=== PATIENT | female | born 1965 | race Two or more races ===

== ENCOUNTER 2019-09-02 20:15 | Inpatient (IN) | payer OTHER ==
[~2019-09-02] VITALS: Ht 157.5 cm; Wt 80.8 kg
[2019-09-02 21:28] LABS: Basophils # (auto) 0.1 uL; Basophils % (auto) 1.2 % (0.0-2.0); Eosinophils # (auto) 1.1 uL; Eosinophils % (auto) 12.5 % (0.0-7.0); Hematocrit 39.7 % (36.0-46.0); Hemoglobin 13.5 g/dL (12.2-16.2); Lymphocytes # (auto) 1.9 uL; Lymphocytes % (auto) 21.3 % (10.0-50.0); Mean Corpuscular Hemoglobin 31.5 pg (28.0-32.0); Mean Corpuscular Volume 92.7 fL (80.0-100.0); Monocytes # (auto) 0.4 uL; Monocytes % (auto) 3.9 % (0.0-12.0); Neutrophils # (auto) 5.5 uL; Neutrophils % (auto) 61.1 % (37.0-80.0); Nucleated Red Blood Cells % 0.1 %; Platelet Count (auto) 391 10^3/uL (140-450); Red Blood Cells 4.29 10^6/uL (4.0-5.20); Red Cell Distribution Width 14.9 % (11.8-14.3)
[2019-09-02 21:30] LABS: Calcium 8.8 mg/dL (8.5-10.1); Chloride 110 mmol/L (98-107); Potassium 4.1 mmol/L (3.5-5.1); Sodium 142 mmol/L (136-145)
[2019-09-02 21:35] LABS: Alanine Aminotransferase 40 U/L (13-56); Albumin 3.9 g/dL (3.4-5.0); Anion Gap 8 (5-15); Aspartate Aminotransferase 19 U/L (15-37); BUN/Creatinine Ratio 13.5; Blood Urea Nitrogen 13 mg/dL (7-18); Carbon Dioxide 24 mmol/L (21-32); GFR African American 77 mL/min; GFR Non-African American 64 mL/min; Glucose 269 mg/dL (74-106)
[2019-09-02 21:53] LABS: Alkaline Phosphatase 117 U/L (45-117); Bilirubin, Total 0.7 mg/dL (0.2-1.0); Total Protein 7.8 g/dL (6.4-8.2)
[2019-09-02] MEDS ORDERED: methylPREDNISolone SOD SUCC 125 MG/2 ML VL IV ONE (23:15)
[2019-09-02] MEDS ORDERED: IPRATROPIUM BROM 0.5 MG/2.5ML INH SOL NEB ONE (23:15)
[2019-09-02] MEDS ORDERED: ALBUTEROL SULF 2.5 MG/0.5ML(0.5%) NEB SOLN NEB ONE (23:15)
[2019-09-02 23:36] LABS: INR < 0.93 (0.9-1.15); Partial Thromboplastin Time 27.3 sec (23.64-32.05)
[2019-09-03] MEDS ORDERED: ALBUTEROL SULF 2.5 MG/0.5ML(0.5%) NEB SOLN NEB ONE (01:45)
[2019-09-03] MEDS ORDERED: IPRATROPIUM BROM 0.5 MG/2.5ML INH SOL NEB ONE (01:45)
[2019-09-03 04:45] VITALS: BP 159/61
[2019-09-03] MEDS ORDERED: TEMAZEPAM 15 MG CAP PO PRN (04:45)
[2019-09-03] MEDS ORDERED: ACETAMINOPHEN 325 MG TAB PO PRN (04:45)
[2019-09-03] MEDS ORDERED: cloNIDine HCL 0.1 MG TAB PO PRN (04:45)
[2019-09-03] MEDS ORDERED: NITROGLYCERIN 0.4 MG SL TAB SL PRN (04:45)
[2019-09-03] MEDS ORDERED: ONDANSETRON HCL 4 MG/2 ML VIAL IV PRN (04:45)
[2019-09-03] MEDS ORDERED: DEXTROSE (50%) 50ML SYRG IV PRN (04:45)
[2019-09-03] MEDS ORDERED: MORPHINE SULF INJ 2 MG/ML SYRINGE 1ML IV PRN (04:45)
[2019-09-03 06:15] VITALS: BP 163/81
--- NOTE | 2019-09-03 06:15 | NUR ---
Telemetry admit from ER ALEKSANDRA MENDEZ admitted to Telemetry unit after SBAR received. Patient oriented to SHERRON GROSS RN primary RN, unit, room, bed, and unit policies regarding patient care and visiting hours. Patient now on continuous telemetry monitoring, tele box # and telemetry reading on arrival to unit is SR. Patient placed on bedside oxygen, weighed by bedscale and encouraged to call if they need something. All questions and concerns addressed, patient verbalized understanding.
[2019-09-03] MEDS: InsuLIN REG 1unit/0.01ml Soln (100units/ml) SC SCH ×2 (06:27→12:00)
[2019-09-03] MEDS: ACCU-CHEK COMFORT CURVE STRIP VI SCH ×2 (06:28→12:00)
--- NOTE | 2019-09-03 06:30 | NUR ---
PATIENT BS- 423. ADMINSITERED 10U REGULAR INSULIN. PAGED HOSPITALIST FOR FURTHER ORDERS. PATIENT IS TYPE 2 DM AND ON SOLUMEDROL.
[2019-09-03] MEDS: ALBUTEROL SULF 2.5 MG/0.5ML(0.5%) NEB SOLN NEB SCH ×2 (06:42→12:10)
[2019-09-03] MEDS: IPRATROPIUM BROM 0.5 MG/2.5ML INH SOL NEB SCH ×2 (06:43→12:10)
[2019-09-03] MEDS ORDERED: ALBUAER3 IN (07:00)
[2019-09-03] MEDS ORDERED: METH2.5T3 PO (07:00)
[2019-09-03] MEDS ORDERED: FOLI1TAB6 PO (07:00)
[2019-09-03] MEDS ORDERED: IPRIH INH (07:00)
--- NOTE | 2019-09-03 07:50 | NUR ---
Opening Shift Note Assumed care of patient, alert and orientated x4. No S/S of distress/SOB or pain. Patient on safety precautions with bed in lowest position/locked, side rails up x2, and call light within reach. Patient instructed on POC today and to call for assist PRN, will continue to monitor for changes Q1hr and PRN.
[2019-09-03 08:31] LABS: Urine Bacteria FEW /hpf (None Seen); Urine Blood Negative /uL (Negative); Urine Specific Gravity 1.021 (1.001-1.035); Urine WBC 1 /hpf (0 - 5)
[2019-09-03 09:00] VITALS: BP 163/105
[2019-09-03] MEDS ORDERED: cefTRIAXone 1GM/50ML D5W 50 ML IV SCH (09:00)
[2019-09-03] MEDS ORDERED: methylPREDNISolone SOD SUCC 125 MG/2 ML VL IV SCH (10:00)
[2019-09-03] MEDS ORDERED: FAMOTIDINE 20 MG TAB PO SCH (10:00)
--- NOTE | 2019-09-03 12:51 | NUR ---
Incentive Spirometer Patient educated on benefits of incentive spirometer. Patient taught and returned demonstration.
--- NOTE | 2019-09-03 12:52 | NUR ---
Pulmicort Education Patient was taught to rinse mouth with 8oz of water after treatment with Pulmicort to avoid thrush. Patient verbalized understanding.
[2019-09-03 13:00] VITALS: BP 139/72
[2019-09-03 16:08] VITALS: BP 139/72
--- NOTE | 2019-09-03 16:55 | NUR ---
Discharge instructions given as ordered. Encourage to follow up with PMD as instructed. All questions and concerns addressed. Patient verbalized understanding. IV removed with catheter intact, pressure dressing applied. Telemetry unit returned to ICU.
[2019-09-03 17:00] VITALS: BP 139/76
--- NOTE | 2019-09-03 17:10 | NUR ---
Patient taken to vehicle via wheelchair with all personal belongings, accompanied by staff and family member. No distress noted at time of departure.
[2019-09-03] MEDS ORDERED: BUDESONIDE (INHALATION) 0.5 MG/2 ML NEB NEB SCH (22:00)
== END 2019-09-03 17:10 | disposition home or self-care (01) | DRG 202 ==
LOC: ER 20:21 → TELE 20:22 → TELE-WESTW 09-03 06:09
PROVIDERS: ADMIT Nurse Practitioner; ATTEND Hospitalist
DX: J45.902 Unspecified asthma with status asthmaticus (principal); J96.20 Acute and chronic respiratory failure, unspecified whether with hypoxia or hypercapnia; J20.9 Acute bronchitis, unspecified; M06.9 Rheumatoid arthritis, unspecified; J01.00 Acute maxillary sinusitis, unspecified; E66.9 Obesity, unspecified; E11.9 Type 2 diabetes mellitus without complications; G47.00 Insomnia, unspecified; I10 Essential (primary) hypertension; Z88.1 Allergy status to other antibiotic agents; Z68.32 Body mass index [BMI] 32.0-32.9, adult; Z87.891 Personal history of nicotine dependence; Z82.49 Family history of ischemic heart disease and other diseases of the circulatory system; Z79.899 Other long term (current) drug therapy
CPT/HCPCS: 36415; 71046; 80053; 81001; 82962; 83036; 83880; 84484; 85025; 85379; 85610; 85730; 93005; 94640; 96374; G0378; J0696; J1815

== ENCOUNTER 2020-08-16 15:34 | Inpatient (IN) | payer MEDICAID, OTHER ==
[~2020-08-16] VITALS: Ht 157.5 cm; Wt 91.4 kg
[~2020-08-16 15:34] MED LIST: ALBUAER3 IN; FOLI1TAB6 PO; IPRIH INH; METH2.5T PO
[2020-08-16] MEDS ORDERED: NITROGLYCERIN 0.4 MG SL TAB SL PRN ×2 (16:45→21:30)
[2020-08-16] MEDS ORDERED: MORPHINE SULF INJ 2 MG/ML SYRINGE 1ML IV PRN ×3 (16:45→21:30)
[2020-08-16 18:28] LABS: Basophils # (auto) 0 10 ^3/uL (0-0.2); Basophils % (auto) 0.5 % (0.0-2.0); Eosinophils # (auto) 0.4 10 ^3/uL (0-0.8); Eosinophils % (auto) 4.4 % (0.0-7.0); Hematocrit 40.6 % (36.0-46.0); Hemoglobin 13.6 g/dL (12.2-16.2); Lymphocytes % (auto) 22.5 % (10.0-50.0); Mean Corpuscular Hemoglobin 30.3 pg (28.0-32.0); Mean Corpuscular Hgb Conc. 33.5 g/dL (32.0-36.0); Mean Corpuscular Volume 90.4 fL (80.0-100.0); Monocytes # (auto) 0.4 10 ^3/uL (0-1.3); Monocytes % (auto) 4.9 % (0.0-12.0); Neutrophils # (auto) 6.1 10 ^3/uL (1.6-8.6); Neutrophils % (auto) 67.7 % (37.0-80.0); Platelet Count (auto) 369 10^3/uL (140-450); Red Blood Cells 4.49 10^6/uL (4.0-5.20); Red Cell Distribution Width 13.8 % (11.8-14.3)
[2020-08-16] MEDS ORDERED: ASPirin 81 mg TAB PO ONE (18:30)
--- NOTE | 2020-08-16 18:34 | NUR ---
ARRIVED TO ROOM 298A
[2020-08-16 18:38] LABS: Albumin 3.6 g/dL (3.4-5.0); Anion Gap 5 (5-15); Blood Urea Nitrogen 13 mg/dL (7-18); Calcium 8.8 mg/dL (8.5-10.1); Carbon Dioxide 24 mmol/L (21-32); Chloride 112 mmol/L (98-107); Glucose 147 mg/dL (74-106); Magnesium 2.2 mg/dL (1.6-2.6); Potassium 3.9 mmol/L (3.5-5.1); Sodium 141 mmol/L (136-145)
[2020-08-16] MEDS ORDERED: ALBU0.084 NEB (18:39)
[2020-08-16] MEDS ORDERED: BECL80AE11 IN (18:39)
[2020-08-16] MEDS ORDERED: CLOB0.055 TOP (18:39)
[2020-08-16] MEDS ORDERED: GLIP-110 PO (18:39)
[2020-08-16] MEDS ORDERED: IPR002IS NEB (18:39)
[2020-08-16 18:41] LABS: Alanine Aminotransferase 34 U/L (13-56); Aspartate Aminotransferase 14 U/L (15-37); BUN/Creatinine Ratio 16.9; GFR African American 99 mL/min; GFR Non-African American 82 mL/min
[2020-08-16] MEDS ORDERED: CINN500T PO (18:43)
[2020-08-16] MEDS ORDERED: CALC-386 PO (18:43)
[2020-08-16] MEDS ORDERED: OMEGCAP9 PO (18:43)
[2020-08-16] MEDS ORDERED: LACTCAP35 PA (18:43)
[2020-08-16] MEDS ORDERED: FERR-7 PO (18:43)
[2020-08-16] MEDS ORDERED: IBUP200C3 PO (18:43)
[2020-08-16] MEDS ORDERED: MULT-1018 PO (18:43)
[2020-08-16] MEDS ORDERED: CALC500C3 PO (18:43)
[2020-08-16] MEDS ORDERED: CHOL20007 PO (18:43)
[2020-08-16] MEDS ORDERED: ZINC220C8 PO (18:43)
[2020-08-16 18:46] LABS: Alkaline Phosphatase 94 U/L (45-117)
--- NOTE | 2020-08-16 19:16 | NUR ---
PT INFO HANDED OFF TO IKE RAMIREZ PT AWAKE A&O AND ON THE PHONE CURRENTLY
--- NOTE | 2020-08-16 19:30 | NUR ---
PATIENT IS AOX4 AND ABLE TO AMBULATE INDEPENDENTLY. SHE CURRENTLY HAS NO CHEST PAIN OR SHORTNESS OF BREATH. ALL QUESTIONS REGARDING PLAN OF CARE WERE ANSWERED. BED IS LOCKED IN LOWEST POSITION WITH SIDE RAILS UP X2. WILL CONTINUE TO MONITOR.
[2020-08-16 20:37] VITALS: BP 148/71
[2020-08-16] MEDS ORDERED: AZITHROMYCIN 500MG/ 250ML 250 ML IV ONE (21:00)
[2020-08-16] MEDS ORDERED: DEXTROSE (50%) 50ML SYRG IV PRN (21:00)
[2020-08-16] MEDS ORDERED: methylPREDNISolone SOD SUCC 40 MG/ML VL IV ONE (21:00)
[2020-08-16] MEDS ORDERED: hydrALAZINE HCL 25 MG TAB PO PRN (21:00)
[2020-08-16] MEDS ORDERED: ALBUTEROL SULF 2.5 MG/0.5ML(0.5%) NEB SOLN NEB PRN (21:00)
--- NOTE | 2020-08-16 21:00 | NUR ---
UA COLLECTED AND SENT TO LAB AT THIS TIME.
[2020-08-16 21:10] VITALS: BP 130/63
[2020-08-16 21:29] LABS: Urine Bacteria FEW /hpf (None Seen); Urine Blood Negative /uL (Negative); Urine Mucus FEW (None Seen); Urine Specific Gravity 1.036 (1.001-1.035); Urine WBC 5 /hpf (0 - 5)
[2020-08-16] MEDS ORDERED: ONDANSETRON HCL 4 MG/2 ML VIAL IV PRN (21:30)
[2020-08-16] MEDS ORDERED: HYDROcodone-ACET 5/325MG TAB PO PRN (21:30)
[2020-08-16] MEDS ORDERED: ALUM & MAG HYDROX-SIMETH LIQ(MAALOX) 30 ML PO PRN (21:30)
[2020-08-16] MEDS ORDERED: LORazepam 0.5 MG TAB PO PRN (21:30)
[2020-08-16] MEDS ORDERED: ACETAMINOPHEN 325 MG TAB PO PRN (21:30)
[2020-08-16] MEDS ORDERED: DOCUSATE SOD 100 MG CAP PO PRN (21:30)
[2020-08-16] MEDS: ACCU-CHEK COMFORT CURVE STRIP VI SCH (21:46)
[2020-08-16 22:00] VITALS: BP 148/71
[2020-08-16] MEDS: ATORVASTATIN 20 MG TAB PO SCH (22:00)
[2020-08-16] MEDS: InsuLIN REG 1unit/0.01ml Soln (100units/ml) SC SCH (22:09)
[2020-08-16] MEDS: IPRATROPIUM BROM 0.5 MG/2.5ML INH SOL NEB SCH (22:26)
[2020-08-16 22:29] LABS: Alcohol, Urine < 3.0 mg/dL (0-10); Amphetamine Screen, Urine NEGATIVE (NEGATIVE); Barbiturate Scree,Urine NEGATIVE (NEGATIVE); Benzodiazephine Screen, Urine NEGATIVE (NEGATIVE); Cannabinoid Screen, Urine NEGATIVE (NEGATIVE); Cocaine Screen, Urine NEGATIVE (NEGATIVE); Opiate Scree,Urine NEGATIVE (NEGATIVE); Phencyclidine Screen, Urine NEGATIVE (NEGATIVE)
[2020-08-17] MEDS: IPRATROPIUM BROM 0.5 MG/2.5ML INH SOL NEB SCH ×4 (02:00→22:00)
--- NOTE | 2020-08-17 02:38 | NUR ---
PT REFUSED SCHEDULED MED NEB TX. PT PREFERS TO SLEEP AT THIS TIME. WILL CONTINUE WITH NEXT SCHEDULED TX.
[2020-08-17 05:00] VITALS: BP 132/62
[2020-08-17] MEDS ORDERED: methylPREDNISolone SOD SUCC 40 MG/ML VL IV SCH (06:00)
[2020-08-17] MEDS: ACCU-CHEK COMFORT CURVE STRIP VI SCH ×4 (06:51→21:59)
[2020-08-17] MEDS: InsuLIN REG 1unit/0.01ml Soln (100units/ml) SC SCH ×4 (06:54→21:59)
[2020-08-17 07:12] LABS: Cholesterol 222 mg/dL (< 200); HDL Cholesterol 47 mg/dL (40-59); LDL Cholesterol 154 mg/dL (< 100); Triglycerides 129 mg/dL (< 150)
--- NOTE | 2020-08-17 07:35 | NUR ---
Opening Shift Note Assumed care of patient, awake and alert. No S/S of distress/SOB or pain. Instructed on POC and to call for assist PRN, will continue to monitor for changes Q1hr and PRN.
[2020-08-17] MEDS ORDERED: CALCIUM W/VIT D (600MG/400IU) TAB PO SCH (08:00)
[2020-08-17 09:00] VITALS: BP 126/66
[2020-08-17] MEDS: ASPirin 81 mg TAB PO SCH (09:54)
[2020-08-17] MEDS ORDERED: FLORASTOR (S. BOULARDII) 250 MG CAP PO SCH (10:00)
[2020-08-17] MEDS ORDERED: ENOXAPARIN SOD 40 MG/0.4 ML SYRINGE SC SCH (10:00)
[2020-08-17] MEDS ORDERED: CHOLECALCIFEROL (VITD3) 2,000 UNIT CAP PO SCH (10:00)
--- NOTE | 2020-08-17 11:30 | NUR ---
MD ROUNDING MD Trevon BRITO AT BEDSIDE ALL QUESTIONS AND CONCERNS ADDRESSED AT THIS TIME.
[2020-08-17] MEDS ORDERED: PANTOPRAZOLE 40 MG TAB PO ONE (11:45)
[2020-08-17] MEDS ORDERED: cefTRIAXone 1GM/50ML D5W 50 ML IV ONE (11:45)
[2020-08-17 13:00] VITALS: BP 125/61
[2020-08-17 16:41] VITALS: BP 127/54
[2020-08-17] MEDS ORDERED: AZITHROMYCIN 500MG/ 250ML 250 ML IV SCH (21:00)
[2020-08-17 22:00] VITALS: BP 149/80
[2020-08-17] MEDS: ATORVASTATIN 20 MG TAB PO SCH (22:00)
[2020-08-18] MEDS: IPRATROPIUM BROM 0.5 MG/2.5ML INH SOL NEB SCH ×4 (02:33→10:26)
[2020-08-18 05:00] VITALS: BP 122/50
[2020-08-18] MEDS: InsuLIN REG 1unit/0.01ml Soln (100units/ml) SC SCH ×2 (06:30→11:46)
[2020-08-18] MEDS: ACCU-CHEK COMFORT CURVE STRIP VI SCH ×2 (06:30→11:15)
--- NOTE | 2020-08-18 06:43 | NUR ---
Respiratory note: PT REFUSED SCHEDULED MED NEB TX. PT PREFERS TO SLEEP AT THIS TIME. NO SOB OR DISTRESS NOTED.
[2020-08-18] MEDS ORDERED: ADENOSINE 77 MG in GIVE UN-DILUTED 0 ML IV STA (08:18)
[2020-08-18] MEDS ORDERED: cefTRIAXone 1GM/50ML D5W 50 ML IV SCH (09:00)
[2020-08-18 09:14] VITALS: BP 160/77
[2020-08-18] MEDS ORDERED: PANTOPRAZOLE 40 MG TAB PO SCH (10:00)
[2020-08-18] MEDS: ASPirin 81 mg TAB PO SCH (11:11)
--- NOTE | 2020-08-18 13:38 | NUR ---
NEEL ALCAZAR RE: CLEARANCE FOR DISCHARGE
--- NOTE | 2020-08-18 13:47 | NUR ---
MD ALCAZAR RETURNED PAGE PER IT IS OKAY TO DISCHARGE PATIENT AND HAVE PATIENT SCHEDULED TO HAVE OUTPATIENT FOLLOW UP
--- NOTE | 2020-08-18 15:15 | NUR ---
Discharge instructions given as ordered. Encourage to follow up with PMD as instructed. All questions and concerns addressed. Patient verbalized understanding. Medication reconciliation form completed and copy given to patient. IV removed with catheter intact, pressure dressing applied,. Telemetry unit returned to ICU. Patient taken to vehicle via wheelchair with all personal belongings, accompanied by staff and family member. No distress noted at time of departure.
== END 2020-08-18 15:11 | disposition home or self-care (01) | DRG 243 ==
LOC: ER 15:34 → TELE 15:35 → TELE-WESTW 18:43
PROVIDERS: ADMIT Hospitalist; ATTEND Internal Medicine
DX: K21.9 Gastro-esophageal reflux disease without esophagitis (principal); I25.10 Atherosclerotic heart disease of native coronary artery without angina pectoris; E66.01 Morbid (severe) obesity due to excess calories; E11.65 Type 2 diabetes mellitus with hyperglycemia; M19.90 Unspecified osteoarthritis, unspecified site; I10 Essential (primary) hypertension; M06.9 Rheumatoid arthritis, unspecified; G47.33 Obstructive sleep apnea (adult) (pediatric); N39.0 Urinary tract infection, site not specified; E11.9 Type 2 diabetes mellitus without complications; Z68.36 Body mass index [BMI] 36.0-36.9, adult; Z88.1 Allergy status to other antibiotic agents; Z87.440 Personal history of urinary (tract) infections; Z88.8 Allergy status to other drugs, medicaments and biological substances
CPT/HCPCS: 36415; 70450; 71046; 78452; 80053; 80061; 80307; 81001; 82962; 83036; 83735; 83880; 84443; 84484; 85025; 87040; 87086; 93005; 93017; 93306; 94640; G0378; J0153; J0696; J1815